=== PATIENT | female | born 1980 | race Caucasian/White ===

== ENCOUNTER 2022-08-23 17:31 | Emergency (ER) | payer MEDICAID ==
[~2022-08-23] VITALS: Ht 172.7 cm; Wt 68.0 kg
[2022-08-23 17:58] VITALS: BP_SYST 140
--- NOTE | 2022-08-23 18:20 | NUR ---
ER at bedside examining patient.
--- NOTE | 2022-08-23 18:32 | NUR ---
Placed in hallway bed 1 . Placed on [employer] commissioner, blood pressure machine and pulse oximeter. To gown for exam. Side rails up. Report given to Afia.
--- NOTE | 2022-08-23 18:35 | NUR ---
Patient brought in by self from home for bilateral ankle pain. Patient is an active runner and has had multiple times over the last 5w that have exacerbated the inner ankle pain. Right ankle pain reported at 8/10, and left ankle pain is 4/10. Worse after lying down over night and needing to ambulate. Last dose of Ibuprofen at 1000 this am 8000mg. Addendum: 08/23/22 at 1838 by SOUTH skin intact, denies trauma to ankles. Patient awake, alert, and oriented x3. Addendum: 08/23/22 at 1922 by SOUTH Patient denies possibility of and declines urine pre xray.
[2022-08-23] MEDS ORDERED: NAPR-688 PO (18:57)
--- NOTE | 2022-08-23 19:17 | NUR ---
Patient given written and verbal discharge instructions and verbalizes understanding. ER MD Egan discussed with patient the results and treatment provided. Patient in stable condition. ID arm band removed. Rx of Naproxen given. Patient educated on pain management and to follow up with local Podiarist. Pain Scale 11/23. Opportunity for questions provided and answered. Medication side effect fact sheet provided. Addendum: 08/23/22 at 1921 by SOUTH Patient discharged walking, and is awake, alert, and oriented x3.
[2022-08-23 19:20] VITALS: BP_SYST 140
== END 2022-08-23 19:20 | disposition home or self-care (01) ==
LOC: SED 17:31
DX: M13.872 Other specified arthritis, left ankle and foot (principal); M79.671 Pain in right foot; Z79.899 Other long term (current) drug therapy
CPT/HCPCS: 99283